=== PATIENT | female | born 1940 | race Caucasian/White ===

== ENCOUNTER 2017-05-18 12:23 | Emergency (ER) | payer MEDICARE ==
[~2017-05-18] VITALS: Ht 157.5 cm; Wt 60.3 kg
[~2017-05-18 12:23] MED LIST: BENI5TAB4 PO; DOXY100T PO; FEXO180 PO; NIFEDICAL XL PO; OMEG1CAP53 PO; OMEP20CA5 PO; PAXI20TA26 PO; SOMA350T PO; TRAZ50TA78 PO; TRIA.1%T TOP; WELC625T2 PO; ZOCO10TA PO
[2017-05-18 12:29] VITALS: BP 147/73; PULSE 76; RESP 18; TEMP 98.2; O2SAT 96
[2017-05-18] MEDS ORDERED: ZOCO10TA PO (12:50)
[2017-05-18] MEDS ORDERED: OMEP20TA PO (12:50)
[2017-05-18] MEDS ORDERED: HYDR25TA5 PO (12:50)
[2017-05-18] MEDS ORDERED: WELC625T2 PO (12:50)
[2017-05-18] MEDS ORDERED: FEXO15TA PO (12:50)
[2017-05-18] MEDS ORDERED: ASPI-110 PO (12:50)
[2017-05-18] MEDS ORDERED: FLOR250C PO (12:50)
[2017-05-18] MEDS ORDERED: NIFE60TA58 PO (12:50)
[2017-05-18] MEDS ORDERED: MIRA25TA PO (12:50)
--- NOTE | 2017-05-18 13:38 | RADRPT ---
EXAM DATE/TIME: 05/18/2017 13:04 [facility] COMPARISON: No previous studies available for comparison. INDICATIONS : Fell, left foot and ankle pain MEDICAL HISTORY : Chronic obstructive pulmonary disease. SURGICAL HISTORY : None. ENCOUNTER: Initial ACUITY: 1 day PAIN SCORE: 7/10 LOCATION: Left ankle FINDINGS: No definite fractures, or dislocations are identified. No definite lytic or sclerotic lesion is seen . Soft tissue swelling is identified. CONCLUSION: Soft tissue swelling and no definite fracture for genesis. Soraya Gandhi MD on May 18, 2017 at 13:36 Board Certified Radiologist. This report was verified electronically.
--- NOTE | 2017-05-18 13:39 | RADRPT ---
EXAM DATE/TIME: 05/18/2017 13:08 [facility] COMPARISON: No previous studies available for comparison. INDICATIONS : Fell, left foot and ankle pain MEDICAL HISTORY : Chronic obstructive pulmonary disease. SURGICAL HISTORY : None. ENCOUNTER: Initial ACUITY: 1 day PAIN SCORE: 7/10 LOCATION: Left foot FINDINGS: No definite fractures, or dislocations are identified. No definite lytic or sclerotic lesion is seen . There are degenerative changes within multiple joints mainly the interphalangeal joints and the fir st metatarsophalangeal joint. CONCLUSION: Chronic changes and no evidence for acute fracture. Soraya Gandhi MD on May 18, 2017 at 13:36 Board Certified Radiologist. This report was verified electronically.
[2017-05-18] MEDS ORDERED: DICL75TA PO (13:56)
--- NOTE | 2017-05-18 14:05 | PD ---
HPI Chief Complaint: Musculoskeletal Complaint Time Seen by Provider: 14:01 Travel History International Travel<30 days: No Contact w/Intl Traveler<30days: No Traveled to known affect area: No History of Present Illness HPI 77-year-old female that presents to the ED for evaluation of left foot and ankle injury. Per patient she missed a step yesterday [facility]. Per patient she twisted her leg. She has bruising and swelling and she is able to ambulate but with a lot of discomfort. Patient is concerned for injury. She states that her pain is 7 out of 10. She's not been anything for this. She denies any prior injuries. No head injury. No blood thinner use. No history of osteoporosis. PFSH Past Medical History Depression: Yes Cardiovascular Problems: Yes (MVP) High Cholesterol: Yes Diminished Hearing: No Diverticulitis: Yes Gastrointestinal Disorders: Yes (BARRETTS ESOPHAGUS) GERD: Yes (GASTRITIS) Hypertension: Yes Influenza Vaccination: Yes ?: Not Past Surgical History Cholecystectomy: Yes Hysterectomy: Yes Other Surgery: Yes (BREAST LUMP 1973) Social History Alcohol Use: Yes (DAILY) Tobacco Use: Yes (1/2 PPD) Substance Use: No Allergies-Medications (Allergen,Severity, Reaction): Coded Allergies: Beef (Verified Allergy, Mild, U, 05/18/17) Ceclor (Verified Allergy, Mild, Rash, 05/18/17) Penicillin (Verified Allergy, Mild, Rash, 05/18/17) Sulfa (Verified Allergy, Mild, Rash, 05/18/17) Pork (Verified Adverse Reaction, Unknown, 05/18/17) Uncoded Allergies: BEETS,ONIONS (Adverse Reaction, Unknown, 03/29/05) Reported Meds & Prescriptions Reported Meds & Active Scripts Active Diclofenac Sodium DR (Diclofenac Sodium) 75 Mg Tabdr 75 Mg PO BID PRN Reported Aspirin 81 (Aspirin) 81 Mg Tabdr 81 Mg PO DAILY Myrbetriq (Mirabegron) 25 Mg Tab 25 Mg PO DAILY Hydrochlorothiazide 25 Mg Tab 25 Mg PO BID Nifedipine ER 24 HR (Nifedipine) 60 Mg Tab 60 Mg PO DAILY Omeprazole 20 Mg Tab 20 Mg PO DAILY Zocor (Simvastatin) 10 Mg Tab 10 Mg PO DAILY Marry Allergy (Fexofenadine HCl) 180 Mg Tab 180 Mg PO DAILY Florastor (Saccharomyces Boulardii) 250 Mg Cap 250 Mg PO BID Welchol (Colesevelam HCl) 625 Mg Tab 625 Mg PO TID Review of Systems Except as stated in HPI: all other systems reviewed are Neg Physical Exam Narrative GENERAL: SKIN: Warm and dry. HEAD: Atraumatic. Normocephalic. EYES: Pupils equal and round. No scleral icterus. No injection or drainage. ENT: No nasal bleeding or discharge. Mucous membranes pink and moist. NECK: Trachea midline. No JVD. CARDIOVASCULAR: Regular rate and rhythm. RESPIRATORY: No accessory muscle use. Clear to auscultation. Breath sounds equal bilaterally. GASTROINTESTINAL: Abdomen soft, non-tender, nondistended. Hepatic and splenic margins not palpable. MUSCULOSKELETAL: Extremities without clubbing, cyanosis, or edema. No obvious deformities. Patient has obvious bruising and swelling noted on the lateral aspect of the left foot and ankle. Most of the pain appears to be on the fifth metacarpal as well as the lateral malleolus. Tenderness to palpation but minimal. 2+ pulses bilaterally. Sensation intact bilaterally. NEUROLOGICAL: Awake and alert. No obvious cranial nerve deficits. Motor grossly within normal limits. Five out of 5 muscle strength in the arms and legs. Normal speech. PSYCHIATRIC: Appropriate mood and affect; insight and judgment normal. Data Data Last Documented VS Vital Signs Date Time Temp Pulse Resp B/P Pulse Ox O2 Delivery O2 Flow Rate FiO2 05/18/17 12:29 98.2 76 18 147/73 96 Orders Ankle, Complete ([id number]) (05/18/17 12:44) Foot, Complete (Ely0rag) (05/18/17 12:44) Ice/Cold Pack (05/18/17 12:44) Splint Or Brace Apply/Monitor (05/18/17 13:55) [facility] Medical Decision Making Medical Screen Exam Complete: Yes Emergency Medical Condition: Yes Medical Record Reviewed: Yes Interpretation(s) Last Impressions Foot X-Ray 05/18/17 1244 Signed Impressions: Service Date/Time: Thursday, May 18, 2017 13:08 - CONCLUSION: Chronic changes and no evidence for acute fracture. Soraya Gandhi MD Ankle X-Ray 05/18/17 1244 Signed Impressions: Service Date/Time: Thursday, May 18, 2017 13:04 - CONCLUSION: Soft tissue swelling and no definite fracture for technique. Soraya Gandhi MD Differential Diagnosis Fracture versus sprain versus strain versus bruise versus contusion Narrative Course 77-year-old female that presents to the ED for evaluation of left foot injury. Patient was properly examined and was found to have signs and symptoms concerning for fractures. X-rays were done. X-rays do not show any sign of acute bony injury. Only soft tissue swelling. Patient was reassured. At this time I do believe that this is likely a bad sprain. Patient will be given a brace. She will be given a prescription for diclofenac sodium. Told to follow up with PCP. See ED worsening symptoms. She was offered prescription for walker but she declined. Diagnosis Primary Impression: Ankle sprain Qualified Code: S93.402A - Sprain of left ankle, unspecified ligament, initial encounter Additional Impression: Sprain of foot, left Qualified Code: S93.602A - Sprain of foot, left, initial encounter Referrals: Bang Cm MD (PCP) call for appointment Patient Instructions: General Instructions Departure Forms: Tests/Procedures Additional Instructions: Take medications as prescribed. Follow-up with PCP. See ED for any worsening symptoms. Apply ice or heat as needed for pain Med/Other Pt SpecificInfo: Prescription(s) given Scripts Diclofenac Sodium DR 75 Mg Tabdr75 Mg PO BID PRN (PAIN SCALE 1 TO 10) #20 TAB Prov:Javier Peterson MD 05/18/17 Disposition: 01 DISCHARGE HOME Condition: Stable Akhil Guaman May 18, 2017 14:05
== END 2017-05-18 14:27 | disposition home or self-care (01) ==
LOC: PHEFT 12:23
DX: S93.402A Sprain of unspecified ligament of left ankle, initial encounter (principal); S93.602A Unspecified sprain of left foot, initial encounter; I10 Essential (primary) hypertension; E78.00 Pure hypercholesterolemia, unspecified; F17.200 Nicotine dependence, unspecified, uncomplicated; Z86.79 Personal history of other diseases of the circulatory system; Z86.59 Personal history of other mental and behavioral disorders; Z87.19 Personal history of other diseases of the digestive system; X50.1XXA Overexertion from prolonged static or awkward postures, initial encounter
CPT/HCPCS: 73610; 73630; 99283; L1906